=== PATIENT | female | born 1955 | race Two or more races ===

== ENCOUNTER 2021-06-25 22:52 | Emergency (ER) | payer OTHER, MEDICAID ==
[~2021-06-25] VITALS: Ht 157.5 cm; Wt 45.4 kg
[2021-06-25 22:54] VITALS: BP 119/43
[2021-06-26] MEDS ORDERED: SODIUM CHLORIDE 0.9% 500 ML IV ONE (00:45)
[2021-06-26 04:40] LABS: Urine Bacteria FEW /hpf (None Seen); Urine Blood 2+ /uL (Negative); Urine Mucus FEW (None Seen); Urine Specific Gravity 1.024 (1.001-1.035); Urine WBC 8 /hpf (0 - 5)
== END 2021-06-26 03:08 | disposition left against medical advice (07) ==
LOC: ER 22:52
DX: R10.30 Lower abdominal pain, unspecified (principal); R11.0 Nausea
CPT/HCPCS: 81001